=== PATIENT | male | born 1965 | race American Indian/Alaskan Native ===

== ENCOUNTER 2016-09-04 00:18 | Emergency (ER) | payer MEDICAID ==
[2016-09-04 00:47] VITALS: BMI 34.8
[2016-09-04 00:57] VITALS: BP 146/87; PULSE 76; RESP 16; TEMP 98.1; O2SAT 98
--- NOTE | 2016-09-04 01:11 | ED PDOC ---
Arrival/HPI - General Chief Complaint: ENT Problem Time Seen by Provider: 09/04/16 01:08 - History of Present Illness Narrative History of Present Illness (Text): 09/04/16 01:09 51yo male complaining of a sore throat x2 days. States he has no fever or chills. Denies head or neck pain. Able to tolerate PO without difficulty. pt also states he has been constipated. Describes abd fullness, without pain. States he drank prune juice with relief, but still feels like he has some constipation. No abd. pain, no n/v, no chest pain/shortness of breath/RAMOS. No other complaints. Past Medical History - Provider Review Nursing Documentation Reviewed: Yes - Past History Past History: Non-Contributing - Infectious Disease Hx of Infectious Diseases: None - Tetanus Immunization Tetanus Immunization: Unknown - Cardiac Hx Cardiac Disorders: Yes Hx Hypertension: Yes - Pulmonary Hx Respiratory Disorders: Yes Hx Asthma: Yes - Neurological Hx Neurological Disorder: No - HEENT Hx HEENT Disorder: No - Renal Hx Renal Disorder: No - Endocrine/Metabolic Hx Endocrine Disorders: No - Hematological/Oncological Hx Blood Disorders: No - Integumentary Hx Dermatological Disorder: No - Musculoskeletal/Rheumatological Hx Musculoskeletal Disorders: No - Gastrointestinal Hx Gastrointestinal Disorders: No - Genitourinary/Gynecological Hx Genitourinary Disorders: No - Psychiatric Hx Psychophysiologic Disorder: No Hx Substance Use: No - Anesthesia Hx Anesthesia: No Family/Social History Family/Social History: Unknown Family HX Smoking Status: Current Some Days Smoker Hx Alcohol Use: No Hx Substance Use: No Allergies/Home Meds Allergies/Adverse Reactions: Allergies No Known Allergies Allergy (Verified 09/06/15 11:30) Home Medications: Home Meds Medication Instructions Recorded Confirmed Lisinopril [Zestril] 5 mg PO DAILY 07/20/15 09/04/16 Simvastatin [Simvastatin] 10 mg PO HS 09/04/16 09/04/16 Tizanidine HCl [Zanaflex] 4 mg PO TID PRN 09/04/16 09/04/16 amLODIPine [Norvasc] 5 mg PO DAILY 09/04/16 09/04/16 Physical Exam - Physical Exam Narrative Physical Exam (Text): 09/04/16 01:12 - Review of Systems Constitutional: Normal. absent: Fatigue, Weight Change, Fevers Eyes: Normal ENT: sore throat, no tristhmus Respiratory: Normal. absent: SOB, Cough, Sputum Cardiovascular: absent: Chest Pain, Palpitations, Syncope Gastrointestinal: Normal. absent: Abdominal Pain, Diarrhea, Nausea, Vomiting Genitourinary: Normal. absent: Dysuria, Frequency, Hematuria Musculoskeletal: Normal. absent: Arthralgias, Back Pain, Neck Pain Skin: no rashes, no erythema Neurological: absent: Focal Weakness Endocrine: Normal Hemo/Lymphatic: Normal Psychiatric: No suicidal or homicidal ideations Physical exam Patient appears age appropriate in no distress, speaking full sentences without difficulty - Systems Exam Head: Present: Atraumatic, Normocephalic Pupils: Present: PERRL Extroacular Muscles: Present: EOMI Conjunctiva: Present: Normal Mouth: Present: Moist Mucous Membranes Neck: Present: Normal Range of Motion. No: MIDLINE TENDERNESS, Paraspinal Tenderness Respiratory/Chest: Present: Clear to Auscultation, Good Air Exchange. No: Respiratory Distress, Accessory Muscle Use, Tachypneic Cardiovascular: Present: Regular Rate and Rhythm, Normal S1, S2, Peripheal Pulses Present. No: Murmurs Abdomen: Present: Normal Bowel Sounds. No: Tenderness, Distention, Peritoneal Signs, Rebound, Guarding Back: Present: Normal Inspection. No: Midline Tenderness, Paraspinal Tenderness Upper Extremity: Present: Normal Inspection. No: Cyanosis, Edema Lower Extremity: Present: Normal Inspection. No: Edema Neurological: Present: GCS=15, Speech Normal, cranial nerves II through XII fully intact with no cerebellar abnormality, neurosensory fully intact. No focal neurological deficits. Skin: Present: Warm, Dry, Normal Color. No: Rashes Lymphatic: Present: OX3, NI, NC Psychiatric: Present: Alert, Oriented x 3, Normal Insight, Normal Concentration Vital Signs Reviewed: Yes Vital Signs Temp Pulse Resp BP Pulse Ox 09/04/16 00:50 98.1 F 76 16 146/87 98 Temperature: Afebrile Blood Pressure: Normal Pulse: Regular Respiratory Rate: Normal Appearance: Positive for: Well-Appearing Pain Distress: None Mental Status: Positive for: Alert and Oriented X 3 - Systems Exam Mouth: No: Dry, Drooling Pharnyx: Present: ERYTHEMA, Other (no floor of mouth elevation or pain, no pain with hyoid manipulation. ). No: EXUDATE, TONSILS ENLARGED, Peritonsilar Swelling, Uvular Deviation, Muffled/Hoarse Voice, Strider, Soft Palate/Uvular Edema Medical Decision Making ED Course and Treatment: 09/04/16 01:14 51yo male with sore throat and constipation no acute findings on examination, vitals stable pt afebrile erythematous post. pharynx, no assymetry, no uvula deviation, no tristhmus, no pain with hyoid manipulation pt's abd is soft/nt/nd, pos. bowel sounds in all 4 q's and no peritoneal signs pt tolerating PO in the ER without difficulty will be dc'd home with PO abx and colase pt states he feels comfortable being dc'd home with outpatient follow up Pt states she understands to return to the ER right away for new or worsening symptoms or for inability to f/u with PMD or specialist as instructed. Patient states that she fully agrees with and understands discharge instructions. States that she agrees with the plan and disposition. Verbalized and repeated discharge instructions and plan. I have given the patient opportunity to ask any additional questions. Disposition/Present on Arrival - Present on Arrival Any Indicators Present on Arrival: No History of DVT/PE: No History of Uncontrolled Diabetes: No Urinary Catheter: No History of Decub. Ulcer: No History Surgical Site Infection Following: None - Disposition Have Diagnosis and Disposition been Completed?: Yes Diagnosis: Sore throat Disposition: HOME/ ROUTINE Disposition Time: 01:18 Patient Plan: Discharge Condition: GOOD Discharge Instructions (ExitCare): Pharyngitis (ED), Constipation (ED) Additional Instructions: PLEASE RETURN TO THE EMERGENCY DEPARTMENT FOR NEW OR WORSENING SYMPTOMS. RETURN RIGHT AWAY IF YOU CANNOT FOLLOW UP WITH YOUR PRIMARY CARE DOCTOR, CLINIC, OR SPECIALIST IN 1-2 DAYS. Prescriptions: Docusate [Colace] 100 mg PO DAILY PRN #14 cap PRN Reason: Constipation Penicillin VK [Pen-Vee K] 500 mg PO BID #14 tab Referrals: Kia ZAYAS,MD Giovanna [Medical Doctor] - Follow up with primary Nino Portillo MD [Staff Provider] - Follow up with primary Forms: WORK NOTE
== END 2016-09-04 01:20 | disposition home or self-care (01) ==
LOC: ED 00:18
DX: J02.9 Acute pharyngitis, unspecified (principal); F17.210 Nicotine dependence, cigarettes, uncomplicated; I10 Essential (primary) hypertension

== ENCOUNTER 2018-07-15 09:31 | Emergency (ER) | payer MEDICAID ==
[2018-07-15 09:54] VITALS: BMI 38.0
--- NOTE | 2018-07-15 10:01 | ED PDOC ---
Arrival/HPI - General Chief Complaint: Abdominal Pain Time Seen by Provider: 07/15/18 09:33 Historian: Patient - History of Present Illness Narrative History of Present Illness (Text): 07/15/18 10:34 53 y/o male with PMH of HTN, Arthritis, Asthma, presents to the ED c/o abdominal pain x 1 day. Pain is generalized, worse in LLQ. Pt states that he accidentally took two 10mg Percocet this morning on an empty stomach for the pain. 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 Pt denies headstrike or LOC. [facility] arrived on the scene but patient refused treatment. Pt seemed lethargic to coworkers, so they convinced him to come to ED to be evaluated. Patient arrives sleepy but easily arousable to voice, answers questions appropr iately. He typically takes percocet for chronic left knee pain. Denies fever, chills, chest pain, SOB, palpitations, diarrhea, constipation, back pain, neck pain, knee pain, arm pain, peripheral edema, urinary symptoms, testicular pain, or any other associated symptoms. Past Medical History - Provider Review Nursing Documentation Reviewed: Yes - Past History Past History: Non-Contributing - Infectious Disease Hx of Infectious Diseases: None - Tetanus Immunization Tetanus Immunization: Unknown - Cardiac Hx Cardiac Disorders: Yes Hx Hypertension: Yes - Pulmonary Hx Respiratory Disorders: Yes Hx Asthma: Yes - Neurological Hx Neurological Disorder: No - HEENT Hx HEENT Disorder: No - Renal Hx Renal Disorder: No - Endocrine/Metabolic Hx Endocrine Disorders: No - Hematological/Oncological Hx Blood Disorders: No - Integumentary Hx Dermatological Disorder: No - Musculoskeletal/Rheumatological Hx Musculoskeletal Disorders: No - Gastrointestinal Hx Gastrointestinal Disorders: No - Genitourinary/Gynecological Hx Genitourinary Disorders: No - Psychiatric Hx Psychophysiologic Disorder: No Hx Substance Use: No - Anesthesia Hx Anesthesia: No Hx Anesthesia Reactions: No Hx Malignant Hyperthermia: No Family/Social History - Physician Review Nursing Documentation Reviewed: Yes Family/Social History: No Known Family HX Smoking Status: Current Some Days Smoker Hx Alcohol Use: No Hx Substance Use: No Allergies/Home Meds Allergies/Adverse Reactions: Allergies No Known Allergies Allergy (Verified 07/17/18 18:52) Home Medications: Home Meds Medication Instructions Recorded Confirmed Lisinopril [Zestril] 5 mg PO DAILY 07/20/15 09/04/16 Simvastatin 10 mg PO HS 09/04/16 09/04/16 amLODIPine [Norvasc] 5 mg PO DAILY 09/04/16 07/15/18 Review of Systems - Review of Systems Constitutional: Normal. absent: Fevers Eyes: Normal. absent: Vision Changes ENT: Normal. absent: Sore Throat, Sinus Congestion Respiratory: Normal. absent: SOB, Cough Cardiovascular: Normal. absent: Chest Pain, Palpitations, Syncope Gastrointestinal: Abdominal Pain, Nausea Genitourinary Male: Normal. absent: Dysuria, Frequency Musculoskeletal: Back Pain. absent: Neck Pain Skin: Normal. absent: Rash Neurological: Dizziness Endocrine: Normal Physical Exam Vital Signs Reviewed: Yes Vital Signs Temp Pulse Resp BP Pulse Ox 07/15/18 09:51 97.6 F 76 18 162/87 H 96 07/15/18 09:50 73 18 162/87 H 94 L Temperature: Afebrile Blood Pressure: Hypertensive Pulse: Regular Respiratory Rate: Normal Appearance: Positive for: Non-Toxic, Comfortable Pain Distress: None Mental Status: Positive for: other (Somnolent; arousable to voice) Finger Stick Blood Glucose: 244 - Systems Exam Head: Present: Atraumatic, Normocephalic Pupils: Present: Pinpoint (bilaterally) Extroacular Muscles: Present: EOMI Conjunctiva: Present: Normal Mouth: Present: Moist Mucous Membranes Neck: Present: Normal Range of Motion. No: Meningeal Signs, MIDLINE TENDERNESS, Paraspinal Tenderness Respiratory/Chest: Present: Clear to Auscultation, Good Air Exchange. No: Respiratory Distress, Accessory Muscle Use Cardiovascular: Present: Regular Rate and Rhythm, Normal S1, S2, Peripheal Pulses Present Abdomen: Present: Normal Bowel Sounds. No: Tenderness, Distention, Peritoneal Signs, Rebound, Guarding Back: Present: Normal Inspection. No: CVA Tenderness Upper Extremity: Present: Normal Inspection, Normal ROM, NORMAL PULSES, Neurovascularly Intact, Capillary Refill < 2s. No: Cyanosis, Edema, Temperature Abnormalties Lower Extremity: Present: Normal Inspection, NORMAL PULSES, Normal ROM, Neurovascularly Intact, Capillary Refill < 2 s. No: Edema, Temperature Abnormalties Neurological: Present: Motor Func Grossly Intact, Normal Sensory Function, Other (GCS 14) Skin: Present: Warm, Dry, Normal Color. No: Rashes Medical Decision Making ED Course and Treatment: 07/15/18 10:09 Initial Plan: * CBC, CMP * Coags * Mg, Phos * Troponin * Lipase * UA * UDS * EKG * CT Head * CT Cervical Spine * CT Abd/Pelvis * CXR On initial exam, patient is lethargic but arousable to voice, answers questions appropriately. Diaphoretic. Moving all extremities. TTP over LLQ. Pupils constricted, equal bilaterally. EKG shows NSR at 74, no QT prolongation or ischemic changes Fingerstick 244, fluids ordered 10:[address] Landry who recommends no narcan, but close observation of vital signs. 13:04 CT imaging and CXR negative for acute pathology. Bloodwork reviewed, remarkable for leukocytosis at 15 with mild anemia. On re-evaluation patient is much more alert. Able to answer questions and is A&Ox3. Continues to deny extremity pain, back pain, chest pain. Vitals stable, O2 sat improved. 14:25 Pt requesting discharge home. GCS 15, CN II-XII intact. Able to ambulate with steady gait without difficulty. No ataxia. Denies complaints of abdominal pain, SOB, dizziness, extremity pain, back pain, or any other associated physical complaints. Discussed case with ED attending Dr. Landry who recommends discharge home with PMD followup. Diagnostic testing results and plan of care discussed with patient. Strict instructions given regarding prescription use, importance of followup, and signs/symptoms to return to ER including worsening pain, SOB, chest pain, numbness, weakness, paresthesias, or any other new/worsening symptoms. Pt verbalized understanding of discussion. Patient is A&Ox3, ambulating with steady gait, with vital signs stable for discharge. - Lab Interpretations Lab Results: 07/15/18 10:05 07/15/18 10:40 Lab Results 07/15/18 10:40: Acetaminophen < 10.0 L 07/15/18 10:40: Alcohol, Quantitative < 10 07/15/18 10:40: Sodium 141, Potassium 3.9, Chloride 102, Carbon Dioxide 29, Anion Gap 14, BUN 23 H, Creatinine 1.1, Est GFR ( Amer) > 60, Est GFR (Non-Af Amer) > 60, Random Glucose 169 H, Calcium 9.5, Phosphorus 4.0, Magnesium 1.9, Total Bilirubin 0.3, AST 38, ALT 21, Alkaline Phosphatase 62, Troponin I < 0.01 D, Total Protein 8.8 H, Albumin 4.8, Globulin 4.0, Albumin/Globulin Ratio 1.2, Lipase 46 07/15/18 10:05: PT 12.8 H, INR 1.13, APTT 33.5 07/15/18 10:05: WBC 15.1 H, RBC 4.40, Hgb 12.6 L, Hct 38.4 L, MCV 87.3, MCH 28.6, MCHC 32.8, RDW 12.9, Plt Count 312, MPV 11.5 H, Neut % (Auto) 76.8 H, Lymph % (Auto) 18.5 L, Hartley % (Auto) 2.7, Eos % (Auto) 1.7, Baso % (Auto) 0.3, Lymph # (Auto) 2.8, Hartley # (Auto) 0.4, Eos # (Auto) 0.3, Baso # (Auto) 0.05, Absolute Neuts (auto) 11.59 H I have reviewed the lab results: Yes - RAD Interpretation Narrative RAD Interpretations (Text): 07/15/18 12:37 CT Abd/Pelvis with IV contrast: FINDINGS: LOWER THORAX: Minimal linear scar/atelectasis both lower lobes. Very small hiatal hernia. LIVER: Unremarkable. No gross lesion or ductal dilatation. GALLBLADDER AND BILE DUCTS: Unremarkable. PANCREAS: Unremarkable. No gross lesion or ductal dilatation. SPLEEN: Unremarkable. ADRENALS: Unremarkable. No mass. KIDNEYS AND URETERS: 1.6 cm rounded low-attenuation exophytic mass in the mid right kidney increased in size from prior examination at which time this measured approximately 8 mm in diameter. Further evaluation with renal ultrasound examination is advised on a nonemergent basis to rule out neoplasm. No renal calculus. No hydronephrosis. VASCULATURE: Unremarkable. No aortic aneurysm. There is atherosclerotic calcification of the abdominal aorta. BOWEL: Unremarkable. No obstruction. No gross mural thickening. APPENDIX: Normal appendix. PERITONEUM: Unremarkable. No free fluid. No free air. LYMPH NODES: unremarkable. No enlarged lymph nodes. BLADDER: Unremarkable. REPRODUCTIVE: Prostate significant for smooth rounded fluid density central mass or cyst unchanged from 2015. Uncertain significance. Stable over a period of 3-1/2 years. BONES: No acute fracture. OTHER FINDINGS: None. IMPRESSION: No acute abnormality. Enlarging low-density mid right renal mass, likely cyst. Recommend correlation with renal ultrasound examination. Small hiatal hernia. Stable smooth rounded low-attenuation lesion in the central prostate. Not suspicious for malignancy. Head CT: FINDINGS: HEMORRHAGE: No intracranial hemorrhage. BRAIN: No mass effect or edema. No atrophy or chronic microvascular ischemic changes. VENTRICLES: Unremarkable. No hydrocephalus. CALVARIUM: Unremarkable. PARANASAL SINUSES: Chronic pansinusitis MASTOID AIR CELLS: Unremarkable as visualized. No inflammatory changes. OTHER FINDINGS: None. IMPRESSION: No intracranial hemorrhage. Chronic pansinusitis. Otherwise unremarkable examination Cervical Spine CT: FINDINGS: VERTEBRAE: The vertebral bodies are maintained in height. Normal alignment is maintained. The atlantoaxial articulation and odontoid process are intact. DISCS/SPINAL CANAL/NEURAL FORAMINA: There narrowing of the C 5-6 and C6-7 intervertebral disc spaces consistent with degenerative disc disease. As a result of facet hypertrophy and marginal osteophyte, there is mild central canal stenosis at C5-6. There is no other central spinal stenosis seen elsewhere. PARASPINAL SOFT TISSUES: Unremarkable. OTHER FINDINGS: None. IMPRESSION: No fracture/dislocation. Degenerative disc disease C5-6 and C6-7. Mild central spinal stenosis at C5-6. Radiology Orders: 07/15/18 09:56 CHEST PORTABLE [RAD] Stat Alloy Weigher: Radiologist - EKG Interpretation EKG Interpretation (Text): Rate 74; NSR; Normal Intervals; No STEMI or other signs of acute ischemia Interpreted by ED Physician: Yes Type: 12 lead EKG Disposition/Present on Arrival - Present on Arrival Any Indicators Present on Arrival: No History of DVT/PE: No History of Uncontrolled Diabetes: No Urinary Catheter: No History of Decub. Ulcer: No History Surgical Site Infection Following: None - Disposition Have Diagnosis and Disposition been Completed?: Yes Diagnosis: Opioid abuse, Abdominal pain Disposition: HOME/ ROUTINE Disposition Time: 14:25 Patient Plan: Discharge Condition: IMPROVED Discharge Instructions (ExitCare): Viral Gastroenteritis, Acute Abdomen (Belly Pain), Prescription Drug Misuse Additional Instructions: Increase fluids Take home medications as prescribed Followup with primary doctor within 2 days Return to ER with any new/worsening symptoms Referrals: [facility] [place] [Outside] - Follow up with primary Emely Cuevas MD [Medical Doctor] - Follow up with primary Forms: [employer] ([employer]), WORK NOTE
[2018-07-15] MEDS ORDERED: Sodium Chloride 0.9% 1,000 ML IV STA (10:05)
[2018-07-15 10:24] LABS: BASO # 0.05 K/mm3 (0.0-2.0); BASO % 0.3 % (0.0-3.0); EOS # 0.3 (0.0-0.7); EOS % 1.7 % (1.5-5.0); HEMOGLOBIN 12.6 g/dL (14.0-18.0); LYMPH # 2.8 (1.2-3.4); LYMPH % 18.5 % (22.0-35.0); MEAN CELL VOLUME 87.3 fl (80.0-105.0); MEAN CORPUSCULAR HEMOGLOBIN 28.6 pg (25.0-35.0); MEAN CORPUSCULAR HGB CONC 32.8 g/dl (31.0-37.0); MEAN PLATELET VOLUME 11.5 fl (7.0-11.0); MONO # 0.4 (0.1-0.6); MONO % 2.7 % (1.0-6.0); RBC 4.4 10^6/uL (3.5-6.1); RED CELL DISTRIBUTION WIDTH 12.9 % (11.5-14.5); WHITE BLOOD COUNT 15.1 10^3/uL (4.5-11.0)
[2018-07-15 10:33] LABS: INR 1.13; PARTIAL THROMBOPLASTIN TIME 33.5 Seconds (26.9-38.3); PROTHROMBIN TIME 12.8 SECONDS (9.4-12.5)
--- NOTE | 2018-07-15 11:25 | RAD ---
Date of service: 07/15/2018 HISTORY: abd pain COMPARISON: 01/28/2015 TECHNIQUE: 1 view obtained. FINDINGS: LUNGS: No active pulmonary disease. PLEURA: No significant pleural effusion identified, no pneumothorax apparent. CARDIOVASCULAR: No aortic atherosclerotic calcification present. Normal cardiac size. No pulmonary vascular congestion. OSSEOUS STRUCTURES: No significant abnormalities. VISUALIZED UPPER ABDOMEN: Normal. OTHER FINDINGS: None. IMPRESSION: No active disease.
[2018-07-15 11:29] LABS: ALB/GLOB RATIO 1.2 (1.1-1.8); ALBUMIN 4.8 g/dL (3.0-4.8); ALT/SGPT 21 U/L (7-56); AST/SGOT 38 U/L (17-59); BLOOD UREA NITROGEN 23 mg/dL (7-21); CALCIUM 9.5 mg/dL (8.4-10.5); GFR NON-AFRICAN AMERICAN > 60; LIPASE 46 U/L (23-300)
[2018-07-15 11:40] LABS: TROPONIN I < 0.01 ng/mL
[2018-07-15] MEDS ORDERED: Iohexol 350 MG/100 ML VIAL ONE (11:41)
--- NOTE | 2018-07-15 12:24 | CT ---
Date of service: 07/15/2018 PROCEDURE: CT HEAD WITHOUT CONTRAST. HISTORY: fall/syncope COMPARISON: 11/26/2014 TECHNIQUE: Axial computed tomography images were obtained through the head/brain without intravenous contrast. Radiation dose: Total exam DLP = 901.02 mGy-cm. This CT exam was performed using one or more of the following dose reduction techniques: Automated exposure control, adjustment of the mA and/or kV according to patient size, and/or use of iterative reconstruction technique. FINDINGS: HEMORRHAGE: No intracranial hemorrhage. BRAIN: No mass effect or edema. No atrophy or chronic microvascular ischemic changes. VENTRICLES: Unremarkable. No hydrocephalus. CALVARIUM: Unremarkable. PARANASAL SINUSES: Chronic pansinusitis MASTOID AIR CELLS: Unremarkable as visualized. No inflammatory changes. OTHER FINDINGS: None. IMPRESSION: No intracranial hemorrhage. Chronic pansinusitis. Otherwise unremarkable examination
--- NOTE | 2018-07-15 12:27 | CT ---
Date of service: 07/15/2018 PROCEDURE: CT Cervical Spine without contrast HISTORY: fall COMPARISON: None available. TECHNIQUE: Axial computed tomography images were obtained of the cervical spine without the use of intravenous contrast. Coronal and sagittal reformatted images were created and reviewed. Radiation dose: Total exam DLP = 605.08 mGy-cm. This CT exam was performed using one or more of the following dose reduction techniques: Automated exposure control, adjustment of the mA and/or kV according to patient size, and/or use of iterative reconstruction technique. FINDINGS: VERTEBRAE: The vertebral bodies are maintained in height. Normal alignment is maintained. The atlantoaxial articulation and odontoid process are intact. DISCS/SPINAL CANAL/NEURAL FORAMINA: There narrowing of the C 5-6 and C6-7 intervertebral disc spaces consistent with degenerative disc disease. As a result of facet hypertrophy and marginal osteophyte, there is mild central canal stenosis at C5-6. There is no other central spinal stenosis seen elsewhere. PARASPINAL SOFT TISSUES: Unremarkable. OTHER FINDINGS: None. IMPRESSION: No fracture/dislocation. Degenerative disc disease C5-6 and C6-7. Mild central spinal stenosis at C5-6.
--- NOTE | 2018-07-15 12:36 | CT ---
Date of service: 07/15/2018 PROCEDURE: CT Abdomen and Pelvis with contrast HISTORY: LLQ abd pain COMPARISON: 01/27/2015 TECHNIQUE: Contrast dose: 100 mL Omnipaque 350 Radiation dose: Total exam DLP = 1253.52 mGy-cm. This CT exam was performed using one or more of the following dose reduction techniques: Automated exposure control, adjustment of the mA and/or kV according to patient size, and/or use of iterative reconstruction technique. FINDINGS: LOWER THORAX: Minimal linear scar/atelectasis both lower lobes. Very small hiatal hernia. LIVER: Unremarkable. No gross lesion or ductal dilatation. GALLBLADDER AND BILE DUCTS: Unremarkable. PANCREAS: Unremarkable. No gross lesion or ductal dilatation. SPLEEN: Unremarkable. ADRENALS: Unremarkable. No mass. KIDNEYS AND URETERS: 1.6 cm rounded low-attenuation exophytic mass in the mid right kidney increased in size from prior examination at which time this measured approximately 8 mm in diameter. Further evaluation with renal ultrasound examination is advised on a nonemergent basis to rule out neoplasm. No renal calculus. No hydronephrosis. VASCULATURE: Unremarkable. No aortic aneurysm. There is atherosclerotic calcification of the abdominal aorta. BOWEL: Unremarkable. No obstruction. No gross mural thickening. APPENDIX: Normal appendix. PERITONEUM: Unremarkable. No free fluid. No free air. LYMPH NODES: unremarkable. No enlarged lymph nodes. BLADDER: Unremarkable. REPRODUCTIVE: Prostate significant for smooth rounded fluid density central mass or cyst unchanged from 2014. Uncertain significance. Stable over a period of 3-1/2 years. BONES: No acute fracture. OTHER FINDINGS: None. IMPRESSION: No acute abnormality. Enlarging low-density mid right renal mass, likely cyst. Recommend correlation with renal ultrasound examination. Small hiatal hernia. Stable smooth rounded low-attenuation lesion in the central prostate. Not suspicious for malignancy.
[2018-07-15] MEDS ORDERED: Sodium Chloride 0.9% 1,000 ML IV SCH (13:00)
[2018-07-15 14:09] VITALS: BP 188/97; PULSE 85; RESP 16; O2SAT 97
[2018-07-15 14:17] VITALS: TEMP 97.3
--- NOTE | 2018-07-15 20:17 | CARD ---
APPROVED REPORT Date of service: 07/15/2018 EKG Measurement Heart [id number] <Conclusion> Normal sinus rhythm Normal ECG
== END 2018-07-15 14:30 | disposition home or self-care (01) ==
LOC: ED 09:31
DX: R10.32 Left lower quadrant pain (principal); F11.10 Opioid abuse, uncomplicated; I10 Essential (primary) hypertension
CPT/HCPCS: 70450; 71045; 72125; 74177; 80053; 80320; 80329; 83690; 83735; 84100; 84484; 85025; 85610; 85730; 93005; 96360; 99285; J7030; Q9967

== ENCOUNTER 2018-07-17 18:35 | Emergency (ER) | payer MEDICAID ==
[2018-07-17 18:53] VITALS: BMI 36.2
[2018-07-17 18:55] VITALS: TEMP 97.7
--- NOTE | 2018-07-17 19:54 | ED PDOC ---
Arrival/HPI <Marko Nails - Last Filed: 07/17/18 19:59> - General Historian: Patient - History of Present Illness Narrative History of Present Illness (Text): 07/17/18 19:55 53-year-old male with past medical history of hypertension and high cholesterol presents to the emergency room complaining of right knee pain and swelling since yesterday. He reports no trauma, injury, repetitive movements, fever, chills, other joint pain, numbness, decrease in range of motion, hip pain. Patient has no other complaints. <Nikki Peng PA-C - Last Filed: 07/17/18 20:03> - General Chief Complaint: Lower Extremity Problem/Injury Time Seen by Provider: 07/17/18 19:01 Past Medical History - Past History Past History: Non-Contributing - Infectious Disease Hx of Infectious Diseases: None - Tetanus Immunization Tetanus Immunization: Unknown - Cardiac Hx Cardiac Disorders: Yes Hx Hypertension: Yes - Pulmonary Hx Respiratory Disorders: Yes Hx Asthma: Yes - Neurological Hx Neurological Disorder: No - HEENT Hx HEENT Disorder: No - Renal Hx Renal Disorder: No - Endocrine/Metabolic Hx Endocrine Disorders: No - Hematological/Oncological Hx Blood Disorders: No - Integumentary Hx Dermatological Disorder: No - Musculoskeletal/Rheumatological Hx Musculoskeletal Disorders: No - Gastrointestinal Hx Gastrointestinal Disorders: No - Genitourinary/Gynecological Hx Genitourinary Disorders: No - Psychiatric Hx Psychophysiologic Disorder: No Hx Substance Use: No - Anesthesia Hx Anesthesia: No Hx Anesthesia Reactions: No Hx Malignant Hyperthermia: No <Nikki Peng PA-C - Last Filed: 07/17/18 20:03> Family/Social History Family/Social History: No Known Family HX Smoking Status: Current Some Days Smoker Hx Alcohol Use: No Hx Substance Use: No <Nikki Peng PA-C - Last Filed: 07/17/18 20:03> Allergies/Home Meds <Marko Nails - Last Filed: 07/17/18 19:59> <Nikki Peng PA-C - Last Filed: 07/17/18 20:03> Allergies/Adverse Reactions: Allergies No Known Allergies Allergy (Verified 07/17/18 18:52) Home Medications: Home Meds Medication Instructions Recorded Confirmed Lisinopril [Zestril] 5 mg PO DAILY 07/20/15 09/04/16 Simvastatin 10 mg PO HS 09/04/16 09/04/16 amLODIPine [Norvasc] 5 mg PO DAILY 09/04/16 07/15/18 Review of Systems - Review of Systems Constitutional: absent: Fatigue, Fevers Musculoskeletal: Arthralgias, Joint Swelling. absent: Back Pain, Neck Pain Skin: absent: Rash, Skin Lesions Neurological: absent: Headache, Dizziness <Nikki Peng PA-C - Last Filed: 07/17/18 20:03> Physical Exam Vital Signs Temp Pulse Resp BP Pulse Ox 07/17/18 18:55 97.7 F 97 H 18 135/82 97 <Marko Nails - Last Filed: 07/17/18 19:59> Vital Signs Temp Pulse Resp BP Pulse Ox 07/17/18 18:55 97.7 F 97 H 18 135/82 97 Temperature: Afebrile Blood Pressure: Normal Pulse: Regular Respiratory Rate: Normal Appearance: Positive for: Well-Appearing, Non-Toxic, Comfortable Pain Distress: Mild Mental Status: Positive for: Alert and Oriented X 3 - Systems Exam Upper Extremity: Present: Normal Inspection, Normal ROM. No: Edema Lower Extremity: Present: NORMAL PULSES, Normal ROM, Tenderness (R kknee : +mild tenderness, mild edema, +effusion noted, +FROM), Neurovascularly Intact, Capillary Refill < 2 s. No: CALF TENDERNESS, Erythema, Deformity, Temperature Abnormalties Neurological: Present: GCS=15, CN II-XII Intact, Speech Normal, Motor Func Grossly Intact, Normal Sensory Function Skin: Present: Warm, Dry, Normal Color. No: Rashes Psychiatric: Present: Alert, Oriented x 3, Normal Insight, Normal Concentration <Nikki Peng PA-C - Last Filed: 07/17/18 20:03> Medical Decision Making - RAD Interpretation Radiology Orders: 07/17/18 19:03 KNEE RIGHT 2 VIEWS (AP & LAT) [RAD] Stat <Marko Nails - Last Filed: 07/17/18 19:59> ED Course and Treatment: 07/17/18 19:52 XR right knee: Decrease in joint space, +effusion, no fracture, no dislocation, as read by PA. X-ray and diagnosis of knee effusion discussed with the patient in great detail. Patient advised to rest, ice and elevate his right knee to decrease the swelling. Patient refused nita wrap and crutches. Advised to follow up with primary care physician or referral provided in 1-2 days without fail. Advised to take medication as prescribed. Return to the emergency room at any time for any new or worsening symptoms. Patient states he fully agrees with and understands discharge instructions. States that he agrees with the plan and disposition. Verbalized and repeated discharge instructions and plan. I have given the patient opportunity to ask any additional questions. - RAD Interpretation Radiology Orders: 07/17/18 19:03 KNEE RIGHT 2 VIEWS (AP & LAT) [RAD] Stat <Nikki Peng PA-C - Last Filed: 07/17/18 20:03> - PA / METHODS ANALYST / Resident Statement MELISSA has reviewed & agrees with the documentation as recorded. <Marko Nails - Last Filed: 07/17/18 19:59> - PA / METHODS ANALYST / Resident Statement MELISSA has reviewed & agrees with the documentation as recorded. <Nikki Peng PA-C - Last Filed: 07/17/18 20:03> Disposition/Present on Arrival <Marko Nails - Last Filed: 07/17/18 19:59> - Present on Arrival Any Indicators Present on Arrival: No History of DVT/PE: No History of Uncontrolled Diabetes: No Urinary Catheter: No History of Decub. Ulcer: No History Surgical Site Infection Following: None - Disposition Have Diagnosis and Disposition been Completed?: Yes Disposition Time: 19:45 Patient Plan: Discharge <Nikki Peng PA-C - Last Filed: 07/17/18 20:03> - Disposition Diagnosis: Right knee pain, Effusion, right knee Disposition: HOME/ ROUTINE Condition: STABLE Discharge Instructions (ExitCare): Knee Pain (DC) Additional Instructions: Thank you for letting us take care of you today. You were treated for right knee pain with effusion. The emergency medical care you received today was directed at your acute symptoms. If you were prescribed any medication, please fill it and take as directed. It may take several days for your symptoms to resolve. Rest, ice and elevate your knee. Return to the Emergency Department if your symptoms worsen, do not improve, or if you have any other problems. Please contact your doctor in 2 days for re-evaluation and follow up / or call one of the physicians/clinics you have been referred to that are listed on the Patient Visit Information form that is included in your discharge packet. Bring any paperwork you were given at discharge with you along with any medications you are taking to your follow up visit. Our treatment cannot replace ongoing medical care by a primary care provider (PCP) outside of the emergency department. Thank you for allowing the [facility] team to be part of your care today. If you had an X-Ray : A Radiologist will review the ED reading if any change in treatment is needed we will contact you. Prescriptions: Naproxen 500 mg PO BID PRN #20 tablet PRN Reason: Pain, Moderate (4-7) Referrals: Denis Moore MD [Primary Care Provider] - Follow up with primary Dionisio Austin MD [Staff Provider] - Follow up with primary Forms: Dinn[employer]inn (Lao)
[2018-07-17 20:03] VITALS: BP 126/79; PULSE 88; RESP 16; O2SAT 100
--- NOTE | 2018-07-18 08:55 | RAD ---
Date of service: 07/17/2018 PROCEDURE: Right Knee Radiographs. HISTORY: Knee swelling. Pain. No history of recent/ related trauma provided. COMPARISON: None. TECHNIQUE: 2 views obtained. FINDINGS: BONES: No acute fracture. Proliferative hypertrophic changes emanating from the femoral condyle and tibial plateau regions. JOINTS: Tricompartmental degenerative changes. In decreasing order these affect lateral compartment, patellofemoral joint and medial compartment. JOINT EFFUSION: None. OTHER FINDINGS: None. IMPRESSION: Severe osteoarthritic changes. No acute findings
== END 2018-07-17 20:02 | disposition home or self-care (01) ==
LOC: ED 18:35
DX: M25.561 Pain in right knee (principal); M25.461 Effusion, right knee; E78.00 Pure hypercholesterolemia, unspecified; I10 Essential (primary) hypertension